=== PATIENT | female | born 1975 ===

== ENCOUNTER 2016-09-17 06:47 | Emergency (ER) | payer OTHER ==
[2016-09-17 06:47] VITALS: BMI 24.0
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
--- NOTE | 2016-09-17 08:37 | RAD ---
PROCEDURE: Cervical Spine Radiographs. HISTORY: Pain. COMPARISON: None. FINDINGS: BONES: Alignment maintained. No fracture. Dens Intact. DISC SPACES: Normal. SOFT TISSUES: No prevertebral soft tissue swelling. OTHER FINDINGS: Straightening of the cervical curvature likely from patient positioning or muscle spasm. Dental hardware. IMPRESSION: No definite fracture. CT of the cervical spine should be obtained if there is continued suspicion or symptomatology.
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
[2016-09-17 09:17] VITALS: BP 132/63; PULSE 54; RESP 18; TEMP 97.8
[2016-09-17 09:27] VITALS: O2SAT 99
== END 2016-09-17 09:41 | disposition home or self-care (01) ==
LOC: C.ER 06:47
DX: S13.4XXA Sprain of ligaments of cervical spine, initial encounter (principal); V49.9XXA Car occupant (driver) (passenger) injured in unspecified traffic accident, initial encounter

== ENCOUNTER 2016-11-16 06:13 | Emergency (ER) | payer OTHER ==
[2016-11-16 06:13] VITALS: BMI 24.0
[2016-11-16 06:33] VITALS: O2SAT 97
[2016-11-16 07:12] LABS: BASO % 0.2 % (0.0-2.0); EOS % 0.2 % (0.0-4.0); HEMATOCRIT 39.2 % (34.0-47.0); LYMPH % 11.6 % (20.0-40.0); MEAN CELL VOLUME 86.8 fL (81.0-99.0); MEAN CORPUSCULAR HGB CONC 33.4 g/dL (33.0-37.0); MEAN PLATELET VOLUME 9.6 fL (7.2-11.7); MONO # 0.5 K/uL (0.0-0.8); MONO % 5.9 % (0.0-10.0); NRBC % 0.1 % (0.0-2.0); RED CELL DISTRIBUTION WIDTH 13.4 % (11.5-14.5); WHITE BLOOD COUNT 8.7 K/uL (4.8-10.8)
[2016-11-16 07:24] LABS: CHLORIDE 110 mmol/L (98-107)
[2016-11-16 07:25] LABS: POTASSIUM 3.8 mmol/L (3.6-5.2); SODIUM 140 mmol/L (132-148)
[2016-11-16 07:27] LABS: ALB/GLOB RATIO 1.3 (1.0-2.1); AST/SGOT 20 U/L (14-36); BILIRUBIN,TOTAL 1.3 mg/dL (0.2-1.3); CARBON DIOXIDE 22 mmol/L (22-30); GFR AFRICAN-AMERICAN > 60
[2016-11-16 07:28] LABS: ALKALINE PHOSPHATASE 60 U/L (38-126); ALT/SGPT 21 U/L (9-52); BLOOD UREA NITROGEN 14 mg/dL (7-17); CALCIUM 9.1 mg/dl (8.6-10.4); GLUCOSE,RANDOM 109 mg/dL (65-105)
[2016-11-16] MEDS ORDERED: Sodium Chloride 0.9% 1,000 ML IV ONE (07:49)
[2016-11-16 08:01] LABS: RBC URINE 10 /hpf (0-3); URINE BACTERIA RARE (<OCC); URINE BILIRUBIN NEGATIVE (NEGATIVE); URINE BLOOD 3+ (NEGATIVE); URINE COLOR Yellow (YELLOW); URINE GLUCOSE (UA) NORMAL (Normal); URINE KETONE TRACE mg/dL (NEGATIVE); URINE LEUKOCYTE ESTERASE NEG Leu/uL (Negative); URINE PROTEIN NEGATIVE (NEGATIVE); URINE UROBILINOGEN NORMAL mg/dL (0.2-1.0); WBC URINE 2 /hpf (0-5)
[2016-11-16] MEDS ORDERED: Sodium Chloride 0.9% 1,000 ML ONE (08:03)
--- NOTE | 2016-11-16 08:59 | C.PDOC ---
History Of Present Illness 41-year-old female, presents to the emergency department with complaints of diffuse abdominal pain, associated with non-bilious/non-bloody vomiting and watery/non-bloody diarrhea. Patient states she may have eaten questionable uncooked chicken. Denies fever, travel, rashes, chest pain or shortness of breath. Time Seen by Provider: 11/16/16 07:27 Chief Complaint (Nursing): Abdominal Pain History Per: Patient History/Exam Limitations: no limitations Onset/Duration Of Symptoms: Days Current Symptoms Are (Timing): Still Present Severity: Moderate Past Medical History Reviewed: Historical Data, Nursing Documentation, Vital Signs Vital Signs: Last Vital Signs Temp 97.6 F 11/16/16 06:29 Pulse 56 L 11/16/16 06:29 Resp 20 11/16/16 06:29 BP 101/62 11/16/16 06:29 Pulse Ox 97 11/16/16 09:01 - Medical History PMH: Asthma, Bronchitis Surgical History: Appendectomy, (x3) - [facility] Procedures D & C [facility] (02/13/13) Family History: States: No Known Family Hx - Social History Hx Tobacco Use: No Hx Alcohol Use: No Hx Substance Use: No - Immunization History Hx Tetanus Toxoid Vaccination: Yes Hx Influenza Vaccination: Yes Hx Pneumococcal Vaccination: Yes Review Of Systems Except As Marked, All Systems Reviewed And Found Negative. Constitutional: Negative for: Fever, Chills Cardiovascular: Negative for: Chest Pain, Palpitations Respiratory: Negative for: Shortness of Breath Gastrointestinal: Positive for: Nausea, Vomiting, Abdominal Pain, Diarrhea Musculoskeletal: Negative for: Back Pain Skin: Negative for: Rash Neurological: Negative for: Headache, Dizziness Physical Exam - Physical Exam Appears: Non-toxic, No Acute Distress Skin: Warm, Dry, No Rash Eye(s): bilateral: Normal Inspection, PERRL Nose: Normal Oral Mucosa: Moist Lips: Normal Appearing Neck: Normal ROM Cardiovascular: Rhythm Regular, No Murmur Respiratory: Normal Breath Sounds, No Accessory Muscle Use Gastrointestinal/Abdominal: Soft, Tenderness (mild, diffuse), No Guarding, No Rebound Extremity: Normal ROM Neurological/Psych: Oriented x3 ED Course And Treatment - Laboratory Results Result Diagrams: 11/16/16 07:03 11/16/16 07:03 O2 Sat by Pulse Oximetry: 97 Medical Decision Making Medical Decision Making: Plan: * CMP * CBC * Pepcid, IVF, Toradol, Zofran * UA/HCG * Reassess and Disposition Disposition - Disposition Referrals: Marcos Morse MD [Staff Provider] - Disposition: HOME/ ROUTINE Disposition Time: 10:21 Condition: GOOD Additional Instructions: Follow up with the medical doctor within 1-2 days. Return if worsened. Prescriptions: Famotidine [Pepcid] 20 mg PO BID #20 tab Ibuprofen [Motrin] 600 mg PO TID #21 tab Instructions: Abdominal Pain (ED), Food Poisoning (ED) - Clinical Impression Clinical Impression: Abdominal pain - Scribe Statement The provider has reviewed the documentation as recorded by the Scribe (Isabella Wisdom) All medical record entries made by the Scribe were at my direction and personally dictated by me. I have reviewed the chart and agree that the record accurately reflects my personal performance of the history, physical exam, medical decision making, and the department course for this patient. I have also personally directed, reviewed, and agree with the discharge instructions and disposition.
[2016-11-16 10:28] VITALS: BP 108/70; PULSE 70; RESP 16; TEMP 98.2
== END 2016-11-16 10:36 | disposition home or self-care (01) ==
LOC: C.ER 06:13
DX: R10.9 Unspecified abdominal pain (principal)
CPT/HCPCS: 80053; 81001; 84703; 85025; 96361; 96374; 96375; 99285; J1885; J2270; J2405; J7040

== ENCOUNTER 2017-04-11 19:24 | Emergency (ER) | payer OTHER ==
[2017-04-11 19:25] VITALS: BMI 24.0
[2017-04-11 19:35] VITALS: RESP 16
[2017-04-11] MEDS ORDERED: Albuterol-Ipratrop 3 mg / 0.5 (3 ml) UD IH STA (20:17)
--- NOTE | 2017-04-11 21:17 | C.PDOC ---
History Of Present Illness 40 year old female, whose PMHx includes asthma, presents to the ED for evaluation of cough, shortness of breath, nasal congestion and sore throat which began around 1 week ago. Patient notes her cough is productive of white sputum and is associated with chest discomfort. Patient also reports headache and lightheadedness which began today. Patient admits that she has not been eating and drinking well because of her sore throat. Patient notes she took her sister's Amoxicillin without significant relief and presents to the ED for further evaluation. Patient denies fever, chills. Time Seen by Provider: 04/11/17 19:37 Chief Complaint (Nursing): Flu-like Symptoms History Per: Patient History/Exam Limitations: no limitations Onset/Duration Of Symptoms: Other (1 week) Current Symptoms Are (Timing): Still Present Location Of Pain: Headache Sick Contacts (Context): None Associated Symptoms: Sore Throat, Cough, Sputum, Nasal Congestion. denies: Fever, Chills Ear Symptoms: Bilateral: None Additional History Per: Patient Past Medical History Reviewed: Historical Data, Nursing Documentation, Vital Signs Vital Signs: Last Vital Signs Temp 98 F 04/11/17 21:30 Pulse 86 04/11/17 21:30 Resp 16 04/11/17 21:30 BP 116/76 04/11/17 21:30 Pulse Ox 98 04/11/17 21:59 - Medical History PMH: Asthma, Bronchitis Surgical History: Appendectomy, (x3) - [facility] Procedures D & C [facility] (02/13/13) Family History: States: Unknown Family Hx - Social History Hx Tobacco Use: No Hx Alcohol Use: No Hx Substance Use: No - Immunization History Hx Tetanus Toxoid Vaccination: Yes Hx Influenza Vaccination: Yes Hx Pneumococcal Vaccination: Yes Review Of Systems Constitutional: Negative for: Fever, Chills Cardiovascular: Positive for: Other (chest discomfort ) Respiratory: Positive for: Cough, Shortness of Breath, Sputum (white ) Neurological: Positive for: Headache, Other (lightheadedness ) Physical Exam - Physical Exam Appears: Non-toxic, No Acute Distress Skin: Normal Color, Warm, Dry Head: Atraumatic, Normacephalic Eye(s): bilateral: Normal Inspection Ear(s): Bilateral: Normal Nose: Normal, No Discharge Oral Mucosa: Moist Throat: Erythema, No Exudate Neck: Supple Chest: Symmetrical, No Deformity, Tenderness (reproducible, to anterior chest wall on palpation ) Cardiovascular: Rhythm Regular, No Murmur Respiratory: Normal Breath Sounds, No Rales, No Rhonchi, No Wheezing Extremity: Normal ROM, Capillary Refill (less than 2 seconds ) Neurological/Psych: Oriented x3, Normal Speech, Normal Cognition Gait: Steady ED Course And Treatment ECG: Interpreted By Me, Viewed By Me ECG Rhythm: Sinus Rhythm Rate From EC (recorded in ED triage ) O2 Sat by Pulse Oximetry: 98 (on RA) Pulse Ox Interpretation: Normal Reassessment Condition: Improved Medical Decision Making Medical Decision Making: Impression: 41 year old female with productive cough, chest discomfort Plan: * CXR * labs * Duoneb INH * Tylenol PO * reassess and disposition Progress: CXR, Influenza A/B, and Rapid Strep test ordered and reviewed. CXR results show no acute disease Flu and Rapid Strep tests are negative. On reassessment, patient is resting comfortably, showing no signs of respiratory distress and reports an improvement in her symptoms. Patient is stable for discharge and is advised to follow up with her PMD within 2-5 days for further evaluation and/or return to the ED if symptoms worsen. Disposition Counseled Patient/Family Regarding: Diagnosis, Need For Followup, Rx Given - Disposition Referrals: Johnny Morse MD [Medical Doctor] - Disposition: HOME/ ROUTINE Disposition Time: 21:17 Condition: STABLE Additional Instructions: Follow up with your primary medical doctor or clinic in 2-5 days for further evaluation. Take medications as prescribed. 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 - Scribe Statement The provider has reviewed the documentation as recorded by the Scribe (Demetrice Gonzalez) All medical record entries made by the Scribe were at my direction and personally dictated by me. I have reviewed the chart and agree that the record accurately reflects my personal performance of the history, physical exam, medical decision making, and the department course for this patient. I have also personally directed, reviewed, and agree with the discharge instructions and disposition.
[2017-04-11 21:31] VITALS: BP 116/76; PULSE 86; TEMP 98
[2017-04-11 21:47] VITALS: O2SAT 98
--- NOTE | 2017-04-12 08:35 | RAD ---
HISTORY: SOB, cough COMPARISON: Chest radiographs 03/22/2016. TECHNIQUE: Chest PA and lateral FINDINGS: LUNGS: Trace fibrotic changes are questioned at the bilateral apices. No infiltrate bilaterally. PLEURA: No significant pleural effusion identified. No pneumothorax apparent. CARDIOVASCULAR: Normal. OSSEOUS STRUCTURES: No significant abnormalities. VISUALIZED UPPER ABDOMEN: Normal. OTHER FINDINGS: None. IMPRESSION: No interval acute cardiopulmonary disease appreciated.
--- NOTE | 2017-04-12 10:09 | CARD ---
APPROVED REPORT EKG Measurement Heart [id number] <Conclusion> Normal sinus rhythm Normal ECG
== END 2017-04-11 21:31 | disposition home or self-care (01) ==
LOC: C.ER 19:24
DX: J40 Bronchitis, not specified as acute or chronic (principal)

== ENCOUNTER 2017-08-08 01:44 | Emergency (ER) | payer OTHER ==
[2017-08-08 01:44] VITALS: BMI 24.0
[2017-08-08 01:56] VITALS: TEMP 97.8
[2017-08-08] MEDS ORDERED: Sodium Chloride 0.9% 1,000 ML IV ONE ×2 (02:01→05:26)
--- NOTE | 2017-08-08 02:01 | C.PDOC ---
History Of Present Illness The patient presents to the ED for evaluation of heavy vaginal bleeding and crampy abdominal pain which began earlier tonight. Patient reports passing large clots. Patient reports her last menstrual period was around 10 days ago. She denies fever, chills. Time Seen by Provider: 08/08/17 02:00 Chief Complaint (Nursing): Female Genitourinary History Per: Patient History/Exam Limitations: no limitations Onset/Duration Of Symptoms: Hrs Current Symptoms Are (Timing): Still Present Severity: Mild Pain Scale Rating Of: 2 Quality Of Discomfort: Cramping, "Pain" Associated Symptoms: denies: Fever, Chills Recent travel outside of the [place]: No Additional History Per: Patient Abnormal Vaginal Bleeding: Yes Past Medical History Reviewed: Historical Data, Nursing Documentation, Vital Signs Vital Signs: Last Vital Signs Temp 97.8 F 08/08/17 01:52 Pulse 70 08/08/17 05:24 Resp 20 08/08/17 05:24 BP 102/69 08/08/17 05:24 Pulse Ox 100 08/08/17 05:24 - Medical History PMH: Asthma, Bronchitis Surgical History: Appendectomy, (x3) - [facility] Procedures D & C [facility] (02/13/13) Family History: States: Unknown Family Hx - Social History Hx Tobacco Use: No Hx Alcohol Use: No Hx Substance Use: No - Immunization History Hx Tetanus Toxoid Vaccination: Yes Hx Influenza Vaccination: Yes Hx Pneumococcal Vaccination: Yes Review Of Systems Constitutional: Negative for: Fever, Chills Cardiovascular: Negative for: Chest Pain, Palpitations Respiratory: Negative for: Cough, Shortness of Breath Gastrointestinal: Positive for: Abdominal Pain. Negative for: Nausea, Vomiting Genitourinary: Positive for: Vaginal Bleeding. Negative for: Dysuria, Frequency , Hematuria Skin: Negative for: Rash, Lesions, Jaundice, Bruising Neurological: Negative for: Weakness, Numbness Physical Exam - Physical Exam Appears: Non-toxic, No Acute Distress Skin: Warm, Dry Head: Normacephalic Eye(s): bilateral: Normal Inspection Oral Mucosa: Moist Neck: Supple Chest: Symmetrical, No Deformity, No Tenderness Cardiovascular: Rhythm Regular, No Murmur Respiratory: No Rales, No Rhonchi, No Wheezing Gastrointestinal/Abdominal: Soft, Tenderness (lower abdomen), No Guarding, No Rebound Extremity: Normal ROM, Capillary Refill (less than 2 seconds ) Neurological/Psych: Oriented x3 ED Course And Treatment - Laboratory Results Result Diagrams: 08/08/17 02:37 08/08/17 02:37 O2 Sat by Pulse Oximetry: 97 (on RA) Pulse Ox Interpretation: Normal Progress Note: Bloodwork, urinalysis, Transvaginal US ordered and reviewed. Morphine IVP and IV Fluids administered. Reevaluation Time: 06:10 Reassessment Condition: Improved Medical Decision Making Medical Decision Making: Upon provider reevaluation patient is feeling better, is medically stable, and requires no further treatment in the ED at this time. Patient will be discharged home with Rx for tramadol. Counseling was provided and all questions were answered regarding diagnosis and need for follow up with dr morse. There is agreement to discharge plan. Return if symptoms persist or worsen. Disposition Counseled Patient/Family Regarding: Studies Performed, Diagnosis, Need For Followup, Rx Given - Disposition Referrals: Johnny Morse MD [Medical Doctor] - Disposition: HOME/ ROUTINE Disposition Time: 02:01 Condition: FAIR Additional Instructions: Please have a repeat US in about 6 weeks to see the resolution of the cyst Prescriptions: traMADol [Ultram] 50 mg PO QID PRN #16 tab PRN Reason: Pain, Severe (8-10) Instructions: Ovarian Cyst (DC), Heavy Periods (DC) Forms: [facility] (Polish), Work/School/Gym Excuse - Clinical Impression Clinical Impression: Hemorrhagic cyst, DUB (dysfunctional uterine bleeding) - Scribe Statement The provider has reviewed the documentation as recorded by the Scribe (Demetrice Gonzalez) Provider Attestation: All medical record entries made by the Scribe were at my direction and personally dictated by me. I have reviewed the chart and agree that the record accurately reflects my personal performance of the history, physical exam, medical decision making, and the department course for this patient. I have also personally directed, reviewed, and agree with the discharge instructions and disposition.
[2017-08-08] MEDS ORDERED: Sodium Chloride 0.9% 1,000 ML ONE ×2 (02:35→05:20)
[2017-08-08 02:41] LABS: BASO % 0.3 % (0.0-2.0); EOS # 0.1 K/uL (0.0-0.7); EOS % 0.6 % (0.0-4.0); LYMPH # 1.4 K/uL (1.0-4.3); LYMPH % 10.7 % (20.0-40.0); MEAN CELL VOLUME 87.1 fL (81.0-99.0); MEAN CORPUSCULAR HEMOGLOBIN 29.7 pg (27.0-31.0); MEAN CORPUSCULAR HGB CONC 34.1 g/dL (33.0-37.0); MEAN PLATELET VOLUME 8.9 fL (7.2-11.7); MONO % 7.5 % (0.0-10.0); NEUT # 10.5 K/uL (1.8-7.0); NEUT % 80.9 % (50.0-75.0); RBC 4.38 Mil/uL (3.80-5.20); RED CELL DISTRIBUTION WIDTH 13.6 % (11.5-14.5)
[2017-08-08 02:45] LABS: SQUAMOUS EPITHIAL 3 /hpf (0-5); URINE BILIRUBIN NEGATIVE (NEGATIVE); URINE BLOOD 3+ (NEGATIVE); URINE CLARITY Hazy (Clear); URINE GLUCOSE (UA) NORMAL (Normal); URINE LEUKOCYTE ESTERASE TRACE Leu/uL (Negative); URINE PROTEIN 1+ mg/dL (NEGATIVE)
[2017-08-08 02:47] LABS: HCG,QUALITATIVE URINE NEGATIVE (NEGATIVE)
[2017-08-08 02:49] LABS: URINE COLOR LIGHT RED (YELLOW)
[2017-08-08 02:55] LABS: ALB/GLOB RATIO 1.4 (1.0-2.1); ALBUMIN 3.8 g/dL (3.5-5.0); ALT/SGPT 18 U/L (9-52); AST/SGOT 19 U/L (14-36); BLOOD UREA NITROGEN 21 mg/dL (7-17); CALCIUM 8.1 mg/dl (8.6-10.4); GFR AFRICAN-AMERICAN > 60; GFR NON-AFRICAN AMERICAN > 60
[2017-08-08 05:26] VITALS: BP 102/69; PULSE 70; RESP 20
[2017-08-08] MEDS ORDERED: Morphine 4 MG/ML VIAL ONE (05:53)
--- NOTE | 2017-08-08 05:55 | US ---
EXAM: US Pelvis Complete, Transabdominal CLINICAL HISTORY: 42 years old, female; Pain; Pelvic pain; Additional info: Vag bleed, large clots TECHNIQUE: Real-time transabdominal pelvic ultrasound (complete) with image documentation. COMPARISON: No relevant prior studies available. FINDINGS: Uterus/cervix: Uterus measures 8.6 x 5.7 x 6.6 cm in size. No myometrial mass. Endometrium: 1.1 cm in thickness, mildly heterogeneous. Right ovary: 2.3 x 2.9 x 1.8 cm in size. No mass. Normal flow. 0.8 x 0.5 x 0.6 cm anechoic lesion within right adnexal region. Left ovary: 3.5 x 2.1 x 2.5 cm in size. 1.4 x 0.6 x 0.9 cm hypoechoic lesion with internal echoes. 1.4 x 1.3 x 1.4 cm anechoic lesion. 1.7 x 0.7 x 1.1 cm anechoic lesion. Normal flow. Free fluid: No significant free fluid. Bladder: Unremarkable as visualized. IMPRESSION: 1. Probable hemorrhagic left ovarian cyst. Recommend sonographic followup in 6 weeks to ensure resolution and exclude other etiologies. 2. Simple left ovarian cysts. 3. Right paraovarian cyst. 4. Incidental/non-acute findings are described above. EXAM: US Pelvis, Transvaginal CLINICAL HISTORY: 42 years old, female; Pain; Pelvic pain; Additional info: Vag bleed, large clots TECHNIQUE: Real-time transvaginal pelvic ultrasound (complete) with image documentation. Transvaginal imaging was used for better evaluation of the endometrium and adnexa. COMPARISON: No relevant prior studies available. FINDINGS: Uterus/cervix: Uterus measures 8.6 x 5.7 x 6.6 cm in size. No myometrial mass. Endometrium: 1.1 cm in thickness, mildly heterogeneous. Right ovary: 2.3 x 2.9 x 1.8 cm in size. No mass. Normal flow. 0.8 x 0.5 x 0.6 cm anechoic lesion within right adnexal region. Left ovary: 3.5 x 2.1 x 2.5 cm in size. 1.4 x 0.6 x 0.9 cm hypoechoic lesion with internal echoes. 1.4 x 1.3 x 1.4 cm anechoic lesion. 1.7 x 0.7 x 1.1 cm anechoic lesion. Normal flow. Free fluid: No significant free fluid. Bladder: Empty bladder which cannot be evaluated with this probe.
[2017-08-08 06:10] VITALS: O2SAT 97
== END 2017-08-08 06:17 | disposition home or self-care (01) ==
LOC: C.ER 01:44
DX: N83.209 Unspecified ovarian cyst, unspecified side (principal); N93.8 Other specified abnormal uterine and vaginal bleeding
CPT/HCPCS: 76830; 76856; 80053; 81001; 84703; 85025; 86850; 86900; 96361; 96374; 96375; 99285; J2270; J2405; J7040